=== PATIENT | male | born 1990 | race Caucasian/White ===

== ENCOUNTER 2016-11-28 20:44 | Emergency (ER) | payer OTHER ==
[2016-11-28] MEDS ORDERED: DUONEB (A & A) INH ONE (22:06)
[2016-11-28] MEDS ORDERED: XYLOCAINE-MPF 1% INJ ONE (23:11)
[2016-11-28] MEDS ORDERED: ROCEPHIN IM ONE (23:11)
[2016-11-28] MEDS ORDERED: DECADRON IM ONE (23:12)
--- NOTE | 2016-11-28 23:14 | PROVIDER DOCUMENTATION ---
HPI-Respiratory General - General Chief Complaint: Cough Stated Complaint: FLU SX Time Seen by Provider: 11/28/16 22:00 Source: patient Allergies/Adverse Reactions: Patient Allergies Allergy/AdvReac Type Severity Reaction Status Date / Time No Known Allergies Allergy Verified 11/28/16 21:14 Home Medications: Home Medication List Medication Instructions Recorded Confirmed Last Taken Type Amoxicillin/Pot Clavulanate 875 mg PO Q12HR #14 tablet 11/28/16 Unknown Rx [Augmentin] Methylprednisolone [Medrol Dosepak] 4 mg PO DIRECTED #1 package 11/28/16 Unknown Rx Promethazine/Dextromethorphan 2 tsp PO Q4H PRN PRN #240 ml 11/28/16 Unknown Rx [Promethazine-Dm Syrup] - History of Present Illness-Resp Nature of Presenting Problem: 26 yom c/o cough and congestion x 4 days that continues to get worse. Quality of Pain: reports: aching Severity in ED: reports: mild Onset/Duration: reports: 4 days ago Timing: reports: still present, getting worse Context: denies: recent foreign travel, insect bite (possible tick), recent chemotherapy, multiple patients with similar complaints, recent URI, out of meds , sports/exercise, aspiration/choking, other Exposure: reports: unknown cause Cough Quality/Degree: reports: moderate, productive cough, sputum Current Respiratory Medication Therapy: Initiated none Associated Symptoms: reports: chest pain/soreness, cough, nasal congestion, short of breath, sore throat Similar Symptoms Previously?: No Recently seen or treated by another doctor?: No Review of Systems - Adult - REVIEW OF SYSTEMS - ADULT Constitutional: reports: see HPI, chills. denies: no symptoms reported, fever, fatique, night sweats, weight gain, weight loss, other Eyes: reports: no symptoms reported. denies: see HPI, discharge, dry eyes, decreased vision, blurred vision, double vision, eye pain, redness, other Ears, Nose, Mouth & Throat: reports: see HPI, throat pain Cardiovascular: reports: no symptoms reported. denies: see HPI, chest pain, edema, heart murmur, irregular heart rate, orthopnea, palpitations, poor circulation, PND, syncope, other Respiratory: reports: see HPI, cough, excessive sputum production Gastrointestinal: reports: no symptoms reported. denies: see HPI, abdominal pain, hematemesis, constipation, diarrhea, difficulty swallowing, frequent heartburn, nausea, poor appetite, rectal bleeding, vomiting, other Genitourinary: reports: no symptoms reported. denies: see HPI, dysuria, discharge, frequency, flank pain, frequent UTI's, hematuria, hesitency, incontinence, urinary retention, urgency, other Musculoskeletal: reports: no symptoms reported Integumentary: reports: no symptoms reported Neurological: reports: no symptoms reported. denies: see HPI, ataxia, dizziness /vertigo, headache/migraines, loss of balance, numbness, paresthesia, seizure, slurred speech, syncope, tremors, other All Other Systems: Reviewed and Negative Past History - Adult - PAST MEDICAL HISTORY-ADULT Review of Records: reports: Old Records Reviewed, Nursing Assessment Review, Medications Reviewed, Social history reviewed & non-contributory. Physical Exam-General - PHYSICAL EXAM-ADULT Initial Vital Signs Reviewed: Yes - CONSTITUTIONAL General Appearance: appears well, alert, no apparent distress. negative: mild distress, moderate distress, severe distress, cachetic, obese, thin, anxious, lethargic, slow to respond, obtunded, combative, other - EYES Eyes: PERRL/EOMI, pink conjunctivae. negative: fundi clear, no AV nicking, anisocoria, conjuctival exudate, EOM palsy, meningismus, pale conjunctivae, photophobia, sclera injected, scleral icterus, subconjunctival hemorrhage, sunken eyes, other - HEAD, EARS, NOSE, MOUTH & THROAT HENMT: normocephalic/atraumatic, moist mucous membranes, normal ENT inspection, TMs normal, pharynx normal. negative: angioedema, dental decay, hearing deficit , pharyngeal erythema, tonsillar exudate, TM abnormal, TM obscurred by cerumen, frontal tenderness, maxillary tenderness, other - NECK Neck: non-tender, full range of motion, supple, normal inspection. negative: Brudzinski's sign, carotid bruit, C-spine tenderness, limited range of motion, lymphadenopathy, meningismus, trachial deviation, tender lateral, tender midline , thyromegaly, other - RESPIRATORY Respiratory: chest non-tender, no respiratory distress, no accessory muscle use , rhonchi, wheezing - CARDIOVASCULAR Cardiovascular: normal peripheral pulses, regular rate, rhythm, no edema, no gallop, no JVD, no murmur. negative: JVD, bradycardia, tachycardia, diastolic murmur, systolic murmur, gallop/S3, gallop/S4, extra beats, friction rub, irregularly irregular, PMI displaced laterally, other - GASTROINTESTINAL (ABDOMEN) Abdominal Exam: normal bowel sounds, non tender, soft, no organomegaly, no pulsatile mass - GENITOURINARY Male Genitalia: deferred - LYMPHATIC Lymphatic: no adenopathy - MUSCULOSKELETAL Back Exam: normal inspection, no CVA tenderness, no vertebral tenderness. negative: CVA tenderness, decreased range of motion, ecchymosis, kyphosis, lordosis, muscle spasm, scoliosis, swelling, vertebral tenderness, other Extremity: normal range of motion, non-tender, normal gait, normal inspection, no pedal edema, no calf tenderness, normal capillary refill, pelvis stable. negative: abnormal NV exam, calf tenderness, deformity, erythema, inflammation, joint effusion, pulse deficit, pedal edema, slow capillary refill, swelling, tenderness, other - SKIN Integumentary: normal color, normal turgor, warm/dry - NEUROLOGIC Neurologic: grossly normal - PSYCHIATRIC Psych/Mental Status: oriented x 3 Progress - PLAN OF CARE/RESULTS Progress/Plan/Lab Results: Orders Category Date Time Status CHEST-2 VIEWS [RAD] Stat Exams 11/28/16 22:04 Taken Albuterol 2.5MG/Ipratrop 0.5MG [Duoneb (A & A)] Med 11/28/16 22:06 Discontinued 3 ml INH NOW ONE CefTRIAXONE [Rocephin] Med 11/28/16 23:11 Discontinued 1 gm IM NOW ONE Dexamethasone [Decadron] Med 11/28/16 23:12 Discontinued 10 mg IM NOW ONE Lidocaine 1% Pf [Xylocaine-Mpf 1%] Med 11/28/16 23:11 Discontinued 5 ml INJ NOW ONE Aerosol Treatments Routine Oth 11/28/16 22:06 Completed Aerosol Treatments Stat Oth 11/28/16 22:06 Completed Vital Signs Temp Pulse Resp BP Pulse Ox 11/28/16 23:41 98.2 F 78 20 130/85 98 11/28/16 22:20 82 16 97 11/28/16 21:10 98.2 F 80 20 147/88 96 No Known Allergies Allergy (Verified 11/28/16 21:14) Amoxicillin/Pot Clavulanate [Augmentin] 875 mg PO Q12HR #14 tablet 11/28/16 Methylprednisolone [Medrol Dosepak] 4 mg PO DIRECTED #1 package 11/28/16 Promethazine/Dextromethorphan [Promethazine-Dm Syrup] 2 tsp PO Q4H PRN PRN #240 ml 11/28/16 - XRAY 1 XRAY Study: Chest Impression: Normal (Normal per radiologist) Departure - Departure Time of Disposition Order: 23:13 DIAGNOSIS: Bronchitis Disposition: HOME 01 Certified Medical Emergency: Emergent Condition: Stable Additional Instructions: ED Follow Up Instructions: You have been treated by a care provider in the Emergency Department. These instructions are being provided to you so you can have an understanding of how to care for yourself upon discharge. Upon discharge from the Emergency Department, you are responsible for making arrangements for follow-up care by a physician of your choice. Take all prescribed medications as directed. Return to the Emergency Department immediately for any new or worsening symptoms. You may call the Physician Referral phone number at [phone] to obtain a list of Physicians who are taking new patients. Prescriptions: Amoxicillin/Pot Clavulanate [Augmentin] 875 mg PO Q12HR #14 tablet Methylprednisolone [Medrol Dosepak] 4 mg PO DIRECTED #1 package Promethazine/Dextromethorphan [Promethazine-Dm Syrup] 2 tsp PO Q4H PRN PRN #240 ml PRN Reason: Cough Referrals: Pepe Ferreira MD [Primary Care Provider] - Forms: Return to School/Parent Work Instructions: Dextromethorphan; Promethazine oral solution, Amoxicillin; Clavulanic Acid tablets, Acute Bronchitis, [id number], Methylprednisolone tablets Attestation - Physician/ NEW Attestation Patient care was provided by Advanced Practice Provider:: Yes Advanced Practice Provider:: Travis Sweet Advanced Practice Provider documentation review:: The Mid-level provider documentation, treatment plan and medical decision making was reviewed by the physician who agrees with all treatment and medical decision making by the [facility]. Physician Attestation - Physician Attestation I, the provider, attest to the following statement:: Sampson Avila Physician documentation Attestation:: This documentation recorded by the scribe accurately reflects the service I personally performed and the decisions made by me.
[2016-11-28 23:42] VITALS: BP 130/85
--- NOTE | 2016-11-29 10:12 | Diag Imaging Result Document ---
PROCEDURE NAME: CHEST-2 VIEWS - 11/28/2016 CHEST, TWO VIEWS: INDICATION: Cough and congestion. COMPARISON: No comparison studies. FINDINGS: The cardiomediastinal silhouette is within normal limits. The pulmonary vasculature is not congested. A small nodular density is noted in the peripheral right lung, possibly a granuloma. There are probable granulomata in the right lung base. No focal consolidation is appreciated. No definite infiltrates or effusions. IMPRESSION: 1. Evidence of previous granulomatous infection. 2. No acute cardiopulmonary abnormality is appreciated.
== END 2016-11-28 23:41 | disposition home or self-care (01) ==
LOC: P.ED 20:44
DX: J40 Bronchitis, not specified as acute or chronic (principal); R05 Cough; R09.81 Nasal congestion; R07.9 Chest pain, unspecified; R06.02 Shortness of breath; J02.9 Acute pharyngitis, unspecified; R68.83 Chills (without fever); R09.3 Abnormal sputum
CPT/HCPCS: 71020; 94640; 94761; 96372; J0696